=== PATIENT | male | born 1960 | race Caucasian/White ===

== ENCOUNTER 2017-04-06 14:32 | Inpatient (IN) | payer OTHER ==
[~2017-04-06] VITALS: Ht 172.7 cm; Wt 119.3 kg
--- NOTE | 2017-04-06 15:48 | NUR ---
PT HAS PAIN 9/10 IN HIS LEFT KNEE. PAGED DR BLAKE, PER DR. BLAKE "NORCO 10-325MG QID PRN" ORDER WILL BE CARRIED OUT
[2017-04-06] MEDS ORDERED: HYDROCODONE/APAP 10-325 MG TABLET PO PRN ×3 (16:00)
--- NOTE | 2017-04-06 19:30 | NUR ---
RECEIVED PATIENT AWAKE, ALERT, AND ORIENTED X4. C/O SEVERE PAIN OF LEFT KNEE S/P LEFT TKR. DR BLAKE HERE TO EVALUATE PATIENT AND PAIN MANAGEMENT REGIMINE.PATIENT REFUSES TO HAVE LEFT LEG ELEVATED ON PILLOW.SCD APPLIED TO RIGHT LEG FOR VTE PROPHYLAXIS.ENCOURAGED INCREASING PO INTAKE OF WATER. REFUSES TO HAVE PM SNACK.
[2017-04-06] MEDS: MORPHINE SULFATE SR 15 MG TABLET.SA PO SCH (20:54)
--- NOTE | 2017-04-06 21:00 | NUR ---
MS CONTIN LONG ACTING PO GIVEN FOR LEFT KNEE SURGICAL PAIN. TO BE GIVEN ATC. PATIENT IS AWARE.REFUSES TO HAVE ICE PACK TO LEFT KNEE TO HELP WITH PAIN.NSTRUCTED PATIENT TO CALL ME IF PAIN GETS ANY WORSE. CALL LIGHT WITHIN REACH
[2017-04-06 21:45] VITALS: BP 119/78
--- NOTE | 2017-04-06 22:15 | NUR ---
PERCOCET 2 TABS GIVEN FOR BREAKTHROUGH PAIN OF LEFT KNEE.
[2017-04-06] MEDS: OXYCODONE/APAP 5-325 MG TABLET PO PRN (22:16)
--- NOTE | 2017-04-06 23:15 | NUR ---
PATIENT IS SLEEPING SOUNDLY. APPEARS TO BE COMFORTABLE AT THIS TIME. WILL MONITOR FOR BREAKTHROUGH PAIN CLOSELY. ROUNDING DONE Q 1 HOUR AND PRN
--- NOTE | 2017-04-07 05:16 | NUR ---
patient was able to sleep soundly for about 4 hours after ms contin and percocet was given for breakthrough pain last night.feels better this morning.able to lift himself up to a sitting position in bed to use the urinal without help.voided clear yellow urine in good amounts.encouraged to call for any needs requested. call light within reach aat.
[2017-04-07] MEDS ORDERED: diphenhydrAMINE 50 MG CAPSULE PO PRN (09:00)
[2017-04-07] MEDS ORDERED: BISACODYL 10 MG SUPP.RECT RC PRN (09:00)
[2017-04-07] MEDS ORDERED: SENNOSIDES 1 TABLET PO PRN (09:00)
[2017-04-07] MEDS ORDERED: ACETAMINOPHEN 325 MG TABLET PO PRN (09:00)
[2017-04-07] MEDS ORDERED: MAGNESIUM HYDROXIDE 30 ML LIQUID UDC PO PRN (09:00)
[2017-04-07 09:20] VITALS: BP 121/81
[2017-04-07] MEDS: ASPIRIN 325 MG TABLET PO SCH (09:22)
[2017-04-07] MEDS: NICOTINE 21 MG/24HR PATCH TD SCH (09:23)
[2017-04-07] MEDS: MORPHINE SULFATE SR 15 MG TABLET.SA PO SCH ×2 (09:23→21:11)
[2017-04-07] MEDS: DOCUSATE SODIUM 100 MG CAPSULE PO SCH ×2 (09:23→17:06)
[2017-04-07] MEDS: PANTOPRAZOLE SODIUM 40 MG TABLET.DR PO SCH ×2 (09:26→21:10)
[2017-04-07] MEDS: OXYCODONE/APAP 5-325 MG TABLET PO PRN ×2 (13:06→23:35)
[2017-04-07] MEDS ORDERED: NICO1PAT20 TD (14:45)
[2017-04-07] MEDS ORDERED: BISA-79 PO (14:45)
[2017-04-07] MEDS ORDERED: HYDR-548 PO (14:45)
[2017-04-07] MEDS ORDERED: OXYC5CAP3 PO (14:45)
[2017-04-07] MEDS ORDERED: ACET-73 PO (14:45)
[2017-04-07] MEDS ORDERED: SENN8.6T6 PO (14:45)
[2017-04-07] MEDS ORDERED: DOCU-25 PO (14:45)
[2017-04-07] MEDS ORDERED: ASPI-612 PO (14:45)
[2017-04-07] MEDS ORDERED: ZOLP5TAB7 PO (14:45)
[2017-04-07 20:15] VITALS: BP 116/84
--- NOTE | 2017-04-08 07:30 | NUR ---
Pt is in no acute distress. Discussed plan of care with pt re: promoting self independence, fall precaution, and pain management. Pt agreeable with plan of care. Call light is within reach.
[2017-04-08 08:00] VITALS: BP 124/96
[2017-04-08] MEDS: DOCUSATE SODIUM 100 MG CAPSULE PO SCH ×2 (08:03→16:44)
[2017-04-08] MEDS: ASPIRIN 325 MG TABLET PO SCH (08:03)
[2017-04-08] MEDS: NICOTINE 21 MG/24HR PATCH TD SCH (08:04)
[2017-04-08] MEDS: MORPHINE SULFATE SR 15 MG TABLET.SA PO SCH ×2 (08:04→20:44)
[2017-04-08] MEDS: OXYCODONE/APAP 5-325 MG TABLET PO PRN ×3 (09:46→22:08)
[2017-04-08 16:42] VITALS: BP 132/89
--- NOTE | 2017-04-08 18:30 | NUR ---
Pt is in no acute distress. Plan of care effective. Pt's pain managed with pain meds. No fall noted this shift. Pt walking to bathroom to urinate. Pt agreeable of having his CPM re started tonight.
--- NOTE | 2017-04-08 19:30 | NUR ---
Received patient awake with no s/s of distress. Verbalized pain in the surgical area. Will assess. Call light within reach. Encouraged to call for assistance whenever necessary. Will continue to monitor.
[2017-04-08] MEDS: PANTOPRAZOLE SODIUM 40 MG TABLET.DR PO SCH (20:44)
[2017-04-08 22:45] VITALS: BP 109/70
--- NOTE | 2017-04-09 07:43 | NUR ---
Patient asleep with no s/s of distress. No complaints of pain during the shift. Slept well through the night. Call light kept within reach. Percocet given per patient's request. Verbalized feeling a little relief. Needs attended. Frequent checks done. Endorsed accordingly.
[2017-04-09 08:17] VITALS: BP 120/85
[2017-04-09] MEDS: MORPHINE SULFATE SR 15 MG TABLET.SA PO SCH ×2 (09:12→21:46)
[2017-04-09] MEDS: NICOTINE 21 MG/24HR PATCH TD SCH (09:13)
[2017-04-09] MEDS: ASPIRIN 325 MG TABLET PO SCH (09:13)
[2017-04-09] MEDS: DOCUSATE SODIUM 100 MG CAPSULE PO SCH ×2 (09:13→17:58)
[2017-04-09] MEDS: OXYCODONE/APAP 5-325 MG TABLET PO PRN ×3 (10:19→23:00)
[2017-04-09 20:00] VITALS: BP 125/81
[2017-04-09] MEDS: PANTOPRAZOLE SODIUM 40 MG TABLET.DR PO SCH (21:53)
[2017-04-10 08:00] VITALS: BP 132/93
[2017-04-10] MEDS: MORPHINE SULFATE SR 15 MG TABLET.SA PO SCH ×2 (08:15→20:02)
[2017-04-10] MEDS: DOCUSATE SODIUM 100 MG CAPSULE PO SCH ×2 (08:15→18:18)
[2017-04-10] MEDS: ASPIRIN 325 MG TABLET PO SCH (08:15)
[2017-04-10] MEDS: NICOTINE 21 MG/24HR PATCH TD SCH (08:15)
[2017-04-10] MEDS: OXYCODONE/APAP 5-325 MG TABLET PO PRN ×3 (09:54→21:44)
[2017-04-10 20:00] VITALS: BP 113/78
[2017-04-10] MEDS: PANTOPRAZOLE SODIUM 40 MG TABLET.DR PO SCH (20:01)
--- NOTE | 2017-04-11 05:37 | NUR ---
SLEPT WELL THROUGH THE NIGHT. S/P LEFT KNEE ARTHROPLASTY. DRESSING DRY AND INTACT. ON PAIN MANAGEMENT FOR LEFT KNEE PAIN, CONTROLLED. ICE PACK APPLIED TO THE SITE. NEEDS RENDERED. SAFETY MAINTAINED. CALL LIGHT WITHIN REACH.
[2017-04-11] MEDS: ASPIRIN 325 MG TABLET PO SCH (08:01)
[2017-04-11] MEDS: NICOTINE 21 MG/24HR PATCH TD SCH (08:02)
[2017-04-11] MEDS: MORPHINE SULFATE SR 15 MG TABLET.SA PO SCH ×2 (08:02→21:09)
[2017-04-11] MEDS: DOCUSATE SODIUM 100 MG CAPSULE PO SCH ×2 (08:02→18:14)
[2017-04-11] MEDS: OXYCODONE/APAP 5-325 MG TABLET PO PRN ×3 (10:15→22:19)
[2017-04-11 11:11] VITALS: BP 120/90
--- NOTE | 2017-04-11 18:30 | NUR ---
Pt is in no acute distress. Pt pain managed. CPM @ 80 degrees. Call light is within reach.
--- NOTE | 2017-04-11 19:30 | NUR ---
RECEIVED PATIENT AWAKE, ALERT AND ORIENTED X3 IN NAD AT THIS TIME.LEFT KNEE WITH ICE PACKS AND ELEVATED ON PILLOW. CSM ADEQUATE TO LEF TOES. COMFORTABLE AT THIS TIME. CALL LIGHT WITHIN REACH
[2017-04-11] MEDS: PANTOPRAZOLE SODIUM 40 MG TABLET.DR PO SCH (21:08)
--- NOTE | 2017-04-12 06:00 | NUR ---
SLEPT WELL TONIGHT AFTER PERCOCET 2 TABS WERE GIVEN FOR BREAKTHROUGH PAIN. COMFORTABLE AND SLEEPING SOUNDLY AT THIS TIME. CALL LIGHT WITHIN REACH
[2017-04-12 08:00] VITALS: BP 128/88
--- NOTE | 2017-04-12 08:29 | NUR ---
Received patient awake in bed. Alert oriented x4. No S/S of distress. No complaints of discomfort at this time. Call light with reach. Ensured safety.
[2017-04-12] MEDS: ASPIRIN 325 MG TABLET PO SCH (08:32)
[2017-04-12] MEDS: MORPHINE SULFATE SR 15 MG TABLET.SA PO SCH (08:33)
[2017-04-12] MEDS: DOCUSATE SODIUM 100 MG CAPSULE PO SCH ×2 (08:33→17:58)
[2017-04-12] MEDS: NICOTINE 21 MG/24HR PATCH TD SCH (08:33)
[2017-04-12] MEDS: OXYCODONE/APAP 5-325 MG TABLET PO PRN ×3 (09:56→21:05)
--- NOTE | 2017-04-12 10:00 | NUR ---
Tolerated CPM well at 90 degrees for 2 hours. Patient complained of pain, PRN pain medication given.
--- NOTE | 2017-04-12 14:36 | NUR ---
IDT MEETING 04/12/17
--- NOTE | 2017-04-12 14:40 | NUR ---
[employer] SW met with patient at [facility] to assess pt needs and provide support. The patient is a 56 year old male admitted for rehab after left knee replacement surgery. The patient was laying in his bed during the interview. He was alert and oriented x3. The patient was calm, cooperative, and pleasant during the interview. Per pt, he was injured while working at his job ([employer]) in August. He initially had an orthoscopic surgery in September but stated that it did not help him which is why he finally had a surgery just recently. He stated that he is now at [facility] in order to gain back his independence and mobility. The patient stated that he is "feeling better and better every day" since he has been here. The patient stated that he was planning on retiring soon but that now he needs to recover and get back to work, since he does not want to retire while on workmans comp. He stated that he will hopefully retire soon. The patient would like to return home with his Angel Valdes [phone] upon discharge. Per pt, he has good family support at home. SW engaged in active listening and provided supportive counseling during the interview. SW will be available as needed.
[2017-04-12 16:29] VITALS: BP 122/78
--- NOTE | 2017-04-12 18:48 | NUR ---
PT finished with CPM all six hours. given percocet for pain @ 1000 and 1200. pt had bm X2. pt had no signs of acute distress. pt adhered to therapy and medication regimen. pt able to understand stroke teaching. pt verbalizes understanding the importance of exercise smoking cessation and diet. pt verbalizes that he is more positive and would like to be discharged earlier. continued to monitor for distress or complications
--- NOTE | 2017-04-12 20:00 | NUR ---
received to care, lying in bed, pleasant upon approach. cpm unit turned off, at this time. c/o right knee pain 04/29. PRN percocet was offered, but he stated he would wait to take it, closer to bedtime. assisted to all needs. c/l in reach. will continue to monitor. Addendum: 04/13/17 at 0021 by ANNE MARIE MOTA LVN correction/ pt c/o LEFT knee pain Addendum: 04/13/17 at 0021 by ANNE MARIE MOTA LVN LEFT KNEE DRESSING IS CLEAN DRY AND INTACT
[2017-04-12 20:13] VITALS: BP 122/76
[2017-04-12 20:14] VITALS: BP 122/79
[2017-04-12] MEDS: PANTOPRAZOLE SODIUM 40 MG TABLET.DR PO SCH (20:58)
--- NOTE | 2017-04-12 21:05 | NUR ---
PRN percocet, 2 tabs, were given at this time, for LEFT knee pain, 6/10 on pain scale.
--- NOTE | 2017-04-12 22:05 | NUR ---
pt states no relief; left knee pain remains 6/10 on pain scale.
[2017-04-12] MEDS: ZOLPIDEM 5 MG TABLET PO PRN ×2 (22:35→23:46)
--- NOTE | 2017-04-12 23:35 | NUR ---
PRN ambien given at this time, for insomnia. left knee pain remains 6/10, but he states that the pain is manageable.
--- NOTE | 2017-04-12 23:46 | NUR ---
remains awake. PRN ambien (repeat dose) was given, at this time.
--- NOTE | 2017-04-13 00:30 | NUR ---
appears to be asleep. no distress noted.
[2017-04-13] MEDS: OXYCODONE/APAP 5-325 MG TABLET PO PRN ×3 (03:59→15:50)
--- NOTE | 2017-04-13 03:59 | NUR ---
pt is now awake. c/o left knee pain, 7/10 on pain scale. PRN percocet, 2 tabs, were given, at this time.
--- NOTE | 2017-04-13 04:59 | NUR ---
pt states no relief; left knee pain remains 7/10 on pain scale.
--- NOTE | 2017-04-13 06:00 | NUR ---
appears to be asleep. no distress noted.
[2017-04-13 08:00] VITALS: BP 122/86
[2017-04-13] MEDS: DOCUSATE SODIUM 100 MG CAPSULE PO SCH ×2 (08:22→16:12)
[2017-04-13] MEDS: ASPIRIN 325 MG TABLET PO SCH (08:22)
[2017-04-13] MEDS: NICOTINE 21 MG/24HR PATCH TD SCH (08:23)
[2017-04-13] MEDS ORDERED: MORPHINE SULFATE SR 15 MG TABLET.SA PO SCH (09:00)
--- NOTE | 2017-04-13 09:06 | NUR ---
patient ambulating with walker with OT therapy. patient is premedicated.
--- NOTE | 2017-04-13 11:41 | NUR ---
patient is just finishing up PT/OT therapy. pain level is tolerable and comfortable at this time. patient is being placed on cpm machine at this time.
--- NOTE | 2017-04-13 13:07 | NUR ---
PATIENT EATING LUNCH. TAKEN OFF CPM PER THERAPIST. PATIENT WILL HAVE THERAPY AGAIN. PATIENTS PAIN IS AT 6/10. DOCTOR INFORMED X1 DOSE OF TORADOL ORDERED.
[2017-04-13] MEDS ORDERED: KETOROLAC TROMETHAMINE 60 MG INJ IM ONE (13:15)
--- NOTE | 2017-04-13 16:17 | NUR ---
PATIENT TAKEN OFF CPM DEVICE AT THIS TIME SETTING WAS AT EXTENSION -5 AND FLEXION 100. SPENT 2 HRS ON. STILL NEEDS 2 HRS AND HALF LEFT FOR TODAY.
[2017-04-13 20:42] VITALS: BP 120/77
--- NOTE | 2017-04-13 21:19 | NUR ---
Dr. Copeland in facility with new orders noted and carried out. RN made aware of new orders. Patient aware of new orders
[2017-04-13] MEDS ORDERED: OXYCODONE HCL 5 MG TABLET PO PRN (21:30)
[2017-04-13] MEDS: MORPHINE SULFATE SR 15 MG TABLET.SA PO SCH (21:51)
[2017-04-13] MEDS: PANTOPRAZOLE SODIUM 40 MG TABLET.DR PO SCH (21:54)
[2017-04-13] MEDS ORDERED: MORPHINE SULFATE SR 15 MG TABLET.SA PO ONE (21:58)
[2017-04-13] MEDS ORDERED: OXYCODONE HCL 5 MG TABLET ONE (23:31)
[2017-04-14 06:48] LABS: BASOPHILS # (AUTO) 0.1 K/uL (0.0-8.0); BASOPHILS % (AUTO) 0.6 % (0.0-2.0); EOSINOPHILS # (AUTO) 0.5 K/uL (0.0-0.7); EOSINOPHILS % (AUTO) 5.9 % (0.0-7.0); HEMATOCRIT 40.1 % (40-50); HEMOGLOBIN 13.8 G/DL (14.0-18.0); LYMPHOCYTES # (AUTO) 2.5 K/UL (0.8-4.8); LYMPHOCYTES % (AUTO) 26.8 % (20.5-51.5); MEAN CORPUSCULAR HEMOGLOBIN 31.5 UUG (27.0-31.0); MEAN CORPUSCULAR HGB CONC 34 g/dL (32.0-37.0); MEAN CORPUSCULAR VOLUME 91.6 FL (82.0-92.0); MONOCYTES # (AUTO) 0.7 K/UL (0.1-1.30); NEUTROPHILS # (AUTO) 5.4 K/UL (1.8-8.9); NEUTROPHILS % (AUTO) 58.7 % (38.5-71.5); PLATELET COUNT (AUTO) 278 K/UL (150-450); RED BLOOD CELL COUNT(AUTO) 4.38 MIL/UL (4.7-6.1); WHITE BLOOD COUNT (AUTO) 9.2 K/UL (4.0-11.2)
[2017-04-14 07:19] LABS: THYROID STIMULATING HORMONE 1.001 mIU/mL (0.358-3.740)
[2017-04-14 07:42] LABS: BILIRUBIN,TOTAL 0.6 mg/dL (0.2-1.0); CREATININE 0.8 mg/dL (0.6-1.3); PHOSPHOROUS 4.7 mg/dL (2.5-4.9); POTASSIUM 4.3 mmol/L (3.5-5.1); TOTAL PROTEIN, SERUM 6.8 g/dL (6.4-8.2)
[2017-04-14 08:00] VITALS: BP 127/81
[2017-04-14] MEDS: NICOTINE 21 MG/24HR PATCH TD SCH (09:05)
[2017-04-14] MEDS: DOCUSATE SODIUM 100 MG CAPSULE PO SCH ×2 (09:05→16:26)
[2017-04-14] MEDS: MORPHINE SULFATE SR 15 MG TABLET.SA PO SCH ×2 (09:05→20:09)
[2017-04-14] MEDS: ASPIRIN 325 MG TABLET PO SCH (09:05)
[2017-04-14] MEDS: OXYCODONE/APAP 5-325 MG TABLET PO PRN ×3 (09:55→21:27)
[2017-04-14] MEDS: PANTOPRAZOLE SODIUM 40 MG TABLET.DR PO SCH (20:09)
[2017-04-14 20:29] VITALS: BP 136/89
[2017-04-15] MEDS: OXYCODONE/APAP 5-325 MG TABLET PO PRN ×2 (04:35→08:35)
[2017-04-15] MEDS: ASPIRIN 325 MG TABLET PO SCH (08:35)
[2017-04-15] MEDS: DOCUSATE SODIUM 100 MG CAPSULE PO SCH (08:35)
[2017-04-15] MEDS: MORPHINE SULFATE SR 15 MG TABLET.SA PO SCH (08:36)
[2017-04-15] MEDS: NICOTINE 21 MG/24HR PATCH TD SCH (09:00)
[2017-04-15 09:50] VITALS: BP 123/74
--- NOTE | 2017-04-15 12:31 | NUR ---
D/C NURSING NOTE PT SIGNED ALL NECESSARY DOCUMENTS VERBALIZED UNDERSTANDING OF D/C INSTRUCTIONS. WHEELED TO CAR BY NURSE. VSS ON D/C
== END 2017-04-15 12:15 | disposition home health service (06) | DRG 554 ==
PROVIDERS: ADMIT Physical Medicine & Rehabilitation Pain Medicine; ATTEND Physical Medicine & Rehabilitation Pain Medicine
DX: M17.12 Unilateral primary osteoarthritis, left knee (principal); Z68.41 Body mass index [BMI] 40.0-44.9, adult; Z96.652 Presence of left artificial knee joint; K21.9 Gastro-esophageal reflux disease without esophagitis; E66.01 Morbid (severe) obesity due to excess calories; F17.210 Nicotine dependence, cigarettes, uncomplicated
CPT/HCPCS: 36415; 70030-TC; 82306; 83735; 84100; 84443; 85025; 97110; 97112; 97116; 97530; 97535; J1885